=== PATIENT | female | born 1985 | race Asian ===

== ENCOUNTER 2016-09-25 00:05 | Inpatient (IN) | payer SELFPAY ==
[~2016-09-25] VITALS: Ht 157.5 cm; Wt 64.4 kg
[2016-09-25] MEDS ORDERED: OXYTOCIN 20 UNITS/LR PREMIX 1,000 ML IV SCH (00:24)
[2016-09-25] MEDS ORDERED: OXYTOCIN 10 UNITS/ML VIAL IM SCH (00:25)
[2016-09-25] MEDS ORDERED: METHYLERGONOVINE 0.2 MG/ML AMP IM SCH (00:25)
[2016-09-25] MEDS ORDERED: NALBUPHINE 10 MG/ML AMP IVP PRN (00:25)
[2016-09-25] MEDS ORDERED: IBUPROFEN 800 MG TAB PO PRN ×2 (00:25→17:25)
[2016-09-25] MEDS ORDERED: PROMETHAZINE 25 MG/ML VIAL IVP PRN (00:25)
[2016-09-25] MEDS ORDERED: CARBOPROST 250 MCG/ML AMP IM PRN (00:25)
[2016-09-25] MEDS ORDERED: MISOPROSTOL 200 MCG TAB VG SCH (00:30)
[2016-09-25] MEDS: LACTATED RINGERS 1,000 ML IV SCH ×3 (00:45→14:48)
[2016-09-25 00:59] LABS: BASOPHILS # (AUTO) 0.2 K/uL (0.00-0.22); BASOPHILS % (AUTO) 1.8 % (0.0-2.0); EOSINOPHILS # (AUTO) 0.2 K/uL (0-0.4); EOSINOPHILS % (AUTO) 2.5 % (0.0-4.0); HEMATOCRIT 36.3 % (36-48); HEMOGLOBIN 12.3 g/dL (12.0-16.0); LYMPHOCYTES # (AUTO) 3.2 K/uL (2.5-16.5); LYMPHOCYTES % (AUTO) 36.3 % (20.5-51.1); MEAN CORPUSCULAR HEMOGLOBIN 32 pg (27-31); MEAN CORPUSCULAR HGB CONC 34 g/dL (33-37); MEAN CORPUSCULAR VOLUME 93 fL (80-94); MONOCYTES # (AUTO) 0.8 K/uL (0.8-1.0); NEUTROPHILS # (AUTO) 4.4 K/uL (1.8-7.7); NEUTROPHILS % (AUTO) 50.4 % (42.2-75.2); PLATELET COUNT (AUTO) 278 K/uL (140-450); RED BLOOD CELL COUNT(AUTO) 3.89 MIL/uL (4.20-5.40); RED CELL DISTRIBUTION WIDTH 14.1 % (11.6-13.7); WHITE BLOOD COUNT (AUTO) 8.8 K/uL (4.8-10.8)
[2016-09-25 01:00] LABS: APPEARANCE,URINE CLEAR (CLEAR); BILIRUBIN,URINE NEGATIVE (NEGATIVE); BLOOD, URINE TRACE-I (NEGATIVE); COLOR,URINE YELLOW (YELLOW); LEUKOCYTE ESTERASE ,URINE TRACE (NEGATIVE); NITRITE, URINE NEGATIVE (NEGATIVE); PROTEIN,URINE NEGATIVE (NEGATIVE); UGLUCOSE NEGATIVE (NEGATIVE); UROBILINOGEN,URINE 0.2 EU/dL (0.2 - 1)
[2016-09-25] MEDS ORDERED: MISOPROSTOL 25 MCG TAB ONE ×2 (01:05→05:13)
[2016-09-25 01:32] LABS: BACTERIA,URINE OCCASSIONAL /HPF (None Seen); RBC,URINE 0-5 (RARE) /HPF (0-5); SQUAMOUS EPITHELIAL CELL,UR 0-3 (FEW) /LPF (0-3 (FEW)); WBC,URINE 0-5 (RARE) /HPF (0-5)
[2016-09-25 02:08] VITALS: BP 102/63
[2016-09-25] MEDS ORDERED: MISOPROSTOL 25 MCG TAB VG PRN (03:15)
[2016-09-25] MEDS ORDERED: ROPIVACAINE 0.2%/NS PREMIX 250 ML EPI ONE (07:25)
[2016-09-25] MEDS ORDERED: OXYTOCIN 20 UNITS/LR PREMIX 1,000 ML IV ONE (09:19)
[2016-09-25] MEDS ORDERED: OXYTOCIN 10 UNITS/ML VIAL ONE (13:33)
[2016-09-25] MEDS ORDERED: TEMAZEPAM 15 MG CAP PO PRN (17:25)
[2016-09-25] MEDS ORDERED: METHYLERGONOVINE 0.2 MG/ML AMP IM PRN (17:25)
[2016-09-25] MEDS ORDERED: OXYTOCIN 10 UNITS/ML VIAL IM PRN (17:25)
[2016-09-25] MEDS ORDERED: BENZOCAINE/MENTHOL 20%-0.5% 60 GM CAN TP PRN (17:25)
[2016-09-25] MEDS ORDERED: MEASLES, MUMPS, AND RUBELLA 1 VIAL SQVAC PRN (17:25)
[2016-09-25] MEDS ORDERED: WITCH HAZEL 40 PAD PACKAGE TP PRN (17:25)
[2016-09-25] MEDS: oxyCODONE/APAP 5/325 MG 1 TAB TAB PO PRN (17:47)
[2016-09-25] MEDS ORDERED: oxyCODONE/APAP 5/325 MG 1 TAB TAB ONE (17:52)
[2016-09-25] MEDS ORDERED: DOCUSATE SOD/SENNA 50/8.6 MG 1 TAB PO SCH (21:00)
[2016-09-25] MEDS: HYDROcodone/APAP 5/325 MG 1 TAB TAB PO PRN (23:47)
[2016-09-26 06:04] LABS: HEMATOCRIT 30.2 % (36-48); HEMOGLOBIN 10.1 g/dL (12.0-16.0)
[2016-09-26] MEDS: HYDROcodone/APAP 5/325 MG 1 TAB TAB PO PRN (06:31)
--- NOTE | 2016-09-26 09:04 | NUR ---
PATIENT HAS BEEN SCREENED AND CATEGORIZED LOW NUTRITION RISK. PATIENT WILL BE SEEN WITHIN 7 DAYS OF ADMISSION. 10/01/[address]
[2016-09-26] MEDS: oxyCODONE/APAP 5/325 MG 1 TAB TAB PO PRN (16:05)
[2016-09-26] MEDS: FERROUS SULFATE 325 MG TABEC PO SCH (19:28)
[2016-09-27] MEDS: HYDROcodone/APAP 5/325 MG 1 TAB TAB PO PRN (05:26)
[2016-09-27] MEDS: FERROUS SULFATE 325 MG TABEC PO SCH (13:07)
== END 2016-09-27 15:55 | disposition home or self-care (01) | DRG 775 ==
LOC: MLD 00:05 → MFCC 20:50
PROVIDERS: ADMIT Obstetrics & Gynecology; ATTEND Obstetrics & Gynecology
PROC: 10E0XZZ Delivery of Products of Conception, External Approach (ICD-10-PCS; principal; 2016-09-25)
PROC: 3E0P7GC Introduction of Other Therapeutic Substance into Female Reproductive, Via Natural or Artificial Opening (ICD-10-PCS; 2016-09-25)
PROC: 0W8NXZZ Division of Female Perineum, External Approach (ICD-10-PCS; 2016-09-25)
PROC: 00HU33Z Insertion of Infusion Device into Spinal Canal, Percutaneous Approach (ICD-10-PCS; 2016-09-25)
PROC: 3E0R3CZ (ICD-10-PCS; 2016-09-25)
PROC: 3E0234Z Introduction of Serum, Toxoid and Vaccine into Muscle, Percutaneous Approach (ICD-10-PCS; 2016-09-26)
DX: O69.81X0 Labor and delivery complicated by cord around neck, without compression, not applicable or unspecified (principal); Z23 Encounter for immunization; Z37.0 Single live birth; Z3A.39 39 weeks gestation of pregnancy
CPT/HCPCS: 36415; 51702; 59200; 59409; 81001; 85018; 85025; 86592; 86886; 86900; 86901; 90707; 90715; J2590; J2795; J7120